=== PATIENT | female | born 1995 | race Two or more races ===

== ENCOUNTER 2021-11-16 09:59 | Observation (INO) ==
[2021-11-16] MEDS ORDERED: LR 1,000 ML IV 1,000 ML IV ONE ×2 (10:24→10:32)
[2021-11-16] MEDS ORDERED: BRETHINE INJ 1 MG VIAL SC ONE ×2 (10:25→10:41)
[2021-11-16 10:48] LABS: BILIRUBIN,URINE NEGATIVE (NEGATIVE); BLOOD/HEMOGLOBIN,URINE 2+ (NEGATIVE); GLUCOSE, URINE NEGATIVE (NEGATIVE); KETONES,URINE NEGATIVE (NEGATIVE); LEUKOCYTE ESTERASE ,URINE 1+ (NEGATIVE); NITRITES,URINE NEGATIVE (NEGATIVE); PROTEIN,URINE NEGATIVE (NEGATIVE); UROBILINOGEN,URINE NORMAL (NORMAL)
[2021-11-16 10:58] LABS: APPEARANCE,URINE SLIGHTLY HAZY (CLEAR); BACTERIA,URINE TRACE /HPF (NEGATIVE); COLOR,URINE YELLOW (YELLOW); SQUAMOUS EPITHELIAL CELL,UR FEW /HPF (NEGATIVE)
[2021-11-16] MEDS ORDERED: NS 1,000 ML IV 1,000 ML ONE (11:23)
[2021-11-16] MEDS ORDERED: ROCEPHIN VIAL 1 GRAM ONE (11:29)
[2021-11-16] MEDS ORDERED: ROCEPHIN VIAL 1 GRAM 1 G in NS 100 ML IV 100 ML IV ONE (11:35)
[2021-11-16] MEDS ORDERED: NS 1,000 ML IV 1,000 ML IV ONE (11:35)
[2021-11-16] MEDS ORDERED: NS IV ONE (11:37)
[2021-11-16] MEDS ORDERED: ROCEPHIN IV ONE (11:37)
[2021-11-16 13:07] VITALS: BP 96/60
== END 2021-11-16 13:22 | disposition home or self-care (01) ==
LOC: LD 09:59 → INTOOBSV 09:59 → LD 10:24
PROVIDERS: ADMIT Obstetrics & Gynecology Obstetrics; ATTEND Obstetrics & Gynecology Obstetrics
DX: Z3A.35 35 weeks gestation of pregnancy; O47.03 False labor before 37 completed weeks of gestation, third trimester; Z20.822 Contact with and (suspected) exposure to COVID-19

== ENCOUNTER 2021-12-19 06:31 | Inpatient (IN) ==
[2021-12-19] MEDS ORDERED: PITOCIN ONE (06:41)
[2021-12-19] MEDS ORDERED: BETADINE SOLN ONE (06:41)
[2021-12-19] MEDS ORDERED: D5 1/2 NS 1,000 ML 1,000 ML IV ONE (06:41)
[2021-12-19] MEDS ORDERED: D5 1/2 NS 1,000 mL + PITOCIN 20 UNITS/L IV 20 UNITS/1,000 ML BAG IV ONE (06:42)
[2021-12-19] MEDS ORDERED: D5 LR + PITOCIN 10 UNITS/L 10 UNITS/1,000 ML BAG IV ONE (06:42)
[2021-12-19] MEDS ORDERED: PITOCIN IVP ONE (07:19)
[2021-12-19] MEDS ORDERED: MORPHINE SULFATE INJ 2 MG INJ IVP PRN (07:19)
[2021-12-19] MEDS ORDERED: D5 LR + PITOCIN 10 UNITS/L 10 UNITS/1,000 ML BAG IV PRN (07:19)
[2021-12-19] MEDS ORDERED: PHENERGAN INJ 25 MG IM PRN ×2 (07:19→13:17)
[2021-12-19] MEDS ORDERED: REGLAN INJ 10 MG VIAL IVP PRN (07:19)
[2021-12-19 07:22] LABS: BILIRUBIN,URINE NEGATIVE (NEGATIVE); BLOOD/HEMOGLOBIN,URINE NEGATIVE (NEGATIVE); GLUCOSE, URINE NEGATIVE (NEGATIVE); KETONES,URINE NEGATIVE (NEGATIVE); LEUKOCYTE ESTERASE ,URINE NEGATIVE (NEGATIVE); NITRITES,URINE NEGATIVE (NEGATIVE); PROTEIN,URINE NEGATIVE (NEGATIVE); UROBILINOGEN,URINE NORMAL (NORMAL)
[2021-12-19 07:27] LABS: APPEARANCE,URINE CLEAR (CLEAR); COLOR,URINE YELLOW (YELLOW)
[2021-12-19 07:54] LABS: BASOPHILS % (AUTO) 0.7 % (0.2-1.0); EOSINOPHILS # (AUTO) 0.1 x10^3/uL (0.0-0.2); HEMATOCRIT 32.3 % (36.0-47.0); HEMOGLOBIN 10.9 g/dL (12.0-16.0); LYMPHOCYTES # (AUTO) 1.9 X10^3/uL (1.3-2.9); LYMPHOCYTES % (AUTO) 28.5 % (21.0-51.0); MEAN CORPUSCULAR HEMOGLOBIN 26.5 pg (27.0-34.0); MEAN CORPUSCULAR HGB CONC 33.9 g/dL (33.0-35.0); MEAN CORPUSCULAR VOLUME 78.4 fL (80.0-100.0); MEAN PLATELET VOLUME 8.6 fL (7.4-11.0); MONOCYTES # (AUTO) 0.5 x10^3/uL (0.3-0.8); MONOCYTES % (AUTO) 7.9 % (0.0-13.0); NEUTROPHILS # (AUTO) 4.1 x10^3/uL (2.2-4.8); NEUTROPHILS % (AUTO) 61.9 % (42.0-75.0); RED BLOOD COUNT 4.12 X10^6/uL (3.5-5.4); RED CELL DISTRIBUTION WIDTH 15.1 % (11.6-16.5); WHITE BLOOD COUNT 6.6 X10^3/uL (3.6-10.0)
[2021-12-19] MEDS ORDERED: D5 1/2 NS 1,000 ML 1,000 ML IV SCH (08:00)
[2021-12-19 08:08] LABS: BLOOD UREA NITROGEN 4 mg/dL (7-18); CARBON DIOXIDE 23.5 mmol/L (21-32); CHLORIDE 103 mmol/L (98-107); COR NA(FOR HYPERGLY) 138 mmol/L (136-145); CREATININE 0.55 mg/dL (0.55-1.02); SODIUM 138 mmol/L (136-145); eGFR NON BLACK RACES > 60 (>60)
[2021-12-19] MEDS ORDERED: AMPICILLIN VIAL 2 GRAM ONE (08:25)
[2021-12-19] MEDS ORDERED: NS 100 ML IV 100 ML ONE ×2 (08:25→12:04)
[2021-12-19] MEDS ORDERED: AMPICILLIN VIAL 2 GRAM IV ONE (08:30)
[2021-12-19] MEDS ORDERED: STADOL INJ ONE ×2 (10:13→13:07)
[2021-12-19] MEDS: STADOL INJ IVP PRN ×2 (10:23→13:10)
[2021-12-19] MEDS ORDERED: XYLOCAINE 1 % (PLAIN) ONE (10:23)
[2021-12-19] MEDS ORDERED: ZOFRAN INJ 4 MG VIAL ONE (10:48)
[2021-12-19] MEDS ORDERED: LR 1,000 ML IV 1,000 ML IV ONE (11:56)
[2021-12-19] MEDS ORDERED: NS 1,000 ML IV 500 ML IV ONE (12:00)
[2021-12-19] MEDS ORDERED: NS 1,000 ML IV 1,000 ML ONE (12:00)
[2021-12-19] MEDS ORDERED: AMPICILLIN VIAL 1 GRAM ONE (12:04)
[2021-12-19] MEDS ORDERED: REGLAN INJ 10 MG VIAL ONE (12:12)
[2021-12-19] MEDS ORDERED: AMPICILLIN VIAL 1 GRAM 1 G in NS 100 ML IV 100 ML IV SCH (12:30)
[2021-12-19] MEDS ORDERED: MOTRIN TAB 800 MG PO PRN ×2 (13:17→14:02)
[2021-12-19] MEDS: D5 1/2 NS 1,000 ML 1,000 ML with PITOCIN 20 UNITS IV SCH ×2 (13:52)
[2021-12-19] MEDS ORDERED: DERMOPLAST PAIN RELIEF SPRAY TOP PRN (14:02)
[2021-12-19] MEDS ORDERED: AMBIEN PO PRN (14:02)
[2021-12-19] MEDS ORDERED: MILK OF MAGNESIA PO PRN (14:02)
[2021-12-20] MEDS: D5 1/2 NS 1,000 ML 1,000 ML with PITOCIN 20 UNITS IV SCH ×2 (00:04)
[2021-12-20 05:27] LABS: HEMATOCRIT 29.3 % (36.0-47.0); HEMOGLOBIN 9.8 g/dL (12.0-16.0)
[2021-12-20] MEDS ORDERED: PRENATAL PLUS PO SCH (09:00)
[2021-12-20 13:58] VITALS: BP 96/57
== END 2021-12-20 16:05 | disposition home or self-care (01) | DRG 807 ==
LOC: LD 06:31 → MED/SURG 14:18
PROVIDERS: ADMIT Obstetrics & Gynecology Obstetrics; ATTEND Obstetrics & Gynecology Obstetrics
DX: Z20.822 Contact with and (suspected) exposure to COVID-19; O71.82 Other specified trauma to perineum and vulva; Z3A.39 39 weeks gestation of pregnancy; Z37.0 Single live birth; O99.013 Anemia complicating pregnancy, third trimester; D50.8 Other iron deficiency anemias